=== PATIENT | female | born 1935 | race Caucasian/White ===

== ENCOUNTER 2020-12-04 21:16 | Inpatient (IN) | payer MEDICARE ==
[2020-12-04] MEDS ORDERED: Ketorolac Tromethamine 30 MG/ML VIAL ONE (23:13)
[2020-12-04 23:22] LABS: #Lymphocytes 0.5 thou/uL (1.20-3.40); #Monocytes 0.5 thou/uL (0.11-0.59); #Neutrophils 8.2 thou/uL (1.40-6.50); %Basophils 0.2 % (0.0-1.0); %Eosinophils 0.1 % (0.0-10.0); %Lymphocytes 5.4 % (21.0-51.0); %Monocytes 5.7 % (0.0-10.0); %Neutrophils 88.7 % (42.0-75.0); Hemoglobin 12.2 g/dL (12.0-16.0); Mean Corpuscular HGB CONC 33.1 g/dL (32.0-36.0); Mean Corpuscular Hemoglobin 30.8 pg (27.0-31.0); Mean Platelet Volume 6.5 fL (7.4-10.4); Platelet Count 349 thou/uL (130-400); RBC Distribution Width 11.4 % (11.5-14.5); Red Blood Cell (RBC) Count 3.95 mill/uL (4.20-5.40); White Blood Cell (WBC) Count 9.3 thou/uL (4.8-10.8)
[2020-12-04 23:44] LABS: ALT (SGPT) 7 U/L (8-55); AST (SGOT) 14 U/L (5-34); Albumin 3.7 g/dL (3.4-4.8); Alkaline Phosphatase 133 U/L (40-110); Anion Gap 13 mmol/L (10-20); BUN (Urea Nitrogen) 15 mg/dL (9.8-20.1); Bilirubin, Total 0.7 mg/dL (0.2-1.2); CK (CPK) 78 U/L (29-168); Calc. Creatinine Clearance 0 mL/min (70-130); Calcium 8.4 mg/dL (7.8-10.44); Carbon Dioxide 26 mmol/L (23-31); Chloride 101 mmol/L (98-107); Globulin 3.1 g/dL (2.4-3.5); Glucose 124 mg/dL (83-110); Potassium 4.1 mmol/L (3.5-5.1); Protein, Total 6.8 g/dL (5.8-8.1); Sodium 136 mmol/L (136-145)
[2020-12-05] MEDS ORDERED: Ondansetron PF 4 MG/2 ML Vial IVP PRN (01:22)
[2020-12-05] MEDS ORDERED: Ondansetron ODT 4 MG TAB PO PRN (01:22)
[2020-12-05] MEDS ORDERED: Calcium Carbonate 500 MG ChewTAB PO PRN (01:22)
[2020-12-05] MEDS ORDERED: Morphine 2 MG/ML VIAL ONE (02:11)
[2020-12-05] MEDS ORDERED: hydrALAZINE 20 MG/ML VIAL SLOW IVP PRN (04:24)
[2020-12-05 04:25] VITALS: BMI 17.7
[2020-12-05] MEDS: Acetaminophen 500 MG TAB PO SCH ×3 (05:45→23:09)
[2020-12-05] MEDS ORDERED: Ketorolac Tromethamine 30 MG/ML VIAL IVP SCH (07:45)
[2020-12-05] MEDS ORDERED: Pantoprazole 40 MG GRANULES PACKET PO SCH (09:00)
[2020-12-05] MEDS: Gabapentin 100 MG CAP PO SCH ×4 (10:32→20:26)
[2020-12-05] MEDS: Pramipexole Di-HCl 0.25 MG TAB PO SCH ×2 (10:33→20:27)
[2020-12-05] MEDS: Cholecalciferol 1,000 UNITS (25 MCG) TAB PO SCH (10:33)
[2020-12-05] MEDS: Carbidopa/Levodopa 25-100 mg Tablet PO SCH ×4 (10:33→20:26)
[2020-12-05] MEDS: Atorvastatin Calcium 10 MG TAB PO SCH (10:33)
[2020-12-05] MEDS: Lactinex Tablet PO SCH (10:34)
[2020-12-05] MEDS: fentaNYL 50 mcg/hour Patch TD SCH (13:04)
[2020-12-05 15:25] LABS: Bacteria/HPF 4+ HPF (None Seen); Bilirubin Negative (Negative); Blood, Urine 2+ (Negative); Clarity Turbid (Clear); Glucose, Urine (Dipstick) Normal (Negative); Ketone, Urine Negative (Negative); Leukocyte 500 Leu/uL (Negative); Nitrite Negative (Negative); Protein, Urine (Dipstick) 70 mg/dL (Neg-Trace); Specific Gravity, Urine 1.015 (1.002-1.036); Squamous Epithelial None Seen HPF (0-3); Urobilinogen Normal mg/dL (Less than 2); WBC/HPF Greater than 50 HPF (0-3); pH, Urine 6.5 (5.0-9.0)
[2020-12-05 15:33] LABS: Urine Culture Reflex Yes Yes
[2020-12-05] MEDS: Cipro 250 MG TAB PO SCH (20:25)
[2020-12-05] MEDS ORDERED: Amlodipine 5 MG TAB PO SCH (21:00)
[2020-12-06] MEDS: Ketorolac Tromethamine 10 MG TAB PO PRN (02:59)
[2020-12-06] MEDS: Cipro 250 MG TAB PO SCH ×2 (05:25→21:03)
[2020-12-06] MEDS: Acetaminophen 500 MG TAB PO SCH ×3 (05:25→21:03)
[2020-12-06] MEDS: Pramipexole Di-HCl 0.25 MG TAB PO SCH ×2 (09:40→21:02)
[2020-12-06] MEDS: Lactinex Tablet PO SCH (09:40)
[2020-12-06] MEDS: Multivit, Therapeutic 1 TAB PO SCH (09:40)
[2020-12-06] MEDS: Cholecalciferol 1,000 UNITS (25 MCG) TAB PO SCH (09:41)
[2020-12-06] MEDS: Gabapentin 100 MG CAP PO SCH ×4 (09:41→21:03)
[2020-12-06] MEDS: Carbidopa/Levodopa 25-100 mg Tablet PO SCH ×4 (09:41→21:03)
[2020-12-06] MEDS: Atorvastatin Calcium 10 MG TAB PO SCH (09:41)
[2020-12-06] MEDS: Enoxaparin Sodium 40 MG/0.4 ML SYRINGE SC SCH (09:42)
[2020-12-06] MEDS: Senokot S 8.6-50 MG TAB PO PRN (09:55)
[2020-12-06] MEDS ORDERED: Amlodipine 5 MG TAB PO SCH (11:57)
[2020-12-06] MEDS: Lidocaine 5% Patch TD SCH (12:56)
[2020-12-06] MEDS: Amlodipine 5 MG TAB PO SCH (21:02)
[2020-12-07] MEDS: Transdermal Patch Removal TOP SCH (02:55)
[2020-12-07] MEDS: Cipro 250 MG TAB PO SCH ×2 (05:50→21:11)
[2020-12-07] MEDS: Acetaminophen 500 MG TAB PO SCH ×3 (06:15→21:12)
[2020-12-07] MEDS: Pramipexole Di-HCl 0.25 MG TAB PO SCH ×2 (08:45→21:11)
[2020-12-07] MEDS: Carbidopa/Levodopa 25-100 mg Tablet PO SCH ×4 (08:45→21:11)
[2020-12-07] MEDS: Lactinex Tablet PO SCH (08:45)
[2020-12-07] MEDS: Multivit, Therapeutic 1 TAB PO SCH (08:46)
[2020-12-07] MEDS: Gabapentin 100 MG CAP PO SCH ×4 (08:46→21:12)
[2020-12-07] MEDS: Cholecalciferol 1,000 UNITS (25 MCG) TAB PO SCH (08:46)
[2020-12-07] MEDS: Atorvastatin Calcium 10 MG TAB PO SCH (08:46)
[2020-12-07] MEDS: Enoxaparin Sodium 40 MG/0.4 ML SYRINGE SC SCH (08:47)
[2020-12-07] MEDS: Lidocaine 5% Patch TD SCH (12:54)
[2020-12-07] MEDS: Senokot S 8.6-50 MG TAB PO PRN (16:50)
[2020-12-07] MEDS: Amlodipine 5 MG TAB PO SCH (21:12)
[2020-12-08] MEDS: Transdermal Patch Removal TOP SCH (01:09)
[2020-12-08] MEDS: Acetaminophen 500 MG TAB PO SCH ×2 (05:26→15:52)
[2020-12-08] MEDS: Cipro 250 MG TAB PO SCH ×2 (05:27→20:53)
[2020-12-08 06:17] LABS: #Eosinphils 0.2 thou/uL (0.0-0.7); #Lymphocytes 1.2 thou/uL (1.20-3.40); #Monocytes 0.5 thou/uL (0.11-0.59); %Basophils 0.2 % (0.0-1.0); %Eosinophils 3.9 % (0.0-10.0); %Lymphocytes 19.5 % (21.0-51.0); %Monocytes 8.7 % (0.0-10.0); %Neutrophils 67.7 % (42.0-75.0); Hemoglobin 13.6 g/dL (12.0-16.0); Mean Corpuscular HGB CONC 33.2 g/dL (32.0-36.0); Mean Corpuscular Hemoglobin 31.3 pg (27.0-31.0); Mean Corpuscular Volume 94.4 fL (78.0-98.0); Mean Platelet Volume 6.2 fL (7.4-10.4); Platelet Count 355 thou/uL (130-400); RBC Distribution Width 11.4 % (11.5-14.5); Red Blood Cell (RBC) Count 4.33 mill/uL (4.20-5.40); White Blood Cell (WBC) Count 5.9 thou/uL (4.8-10.8)
[2020-12-08 06:36] LABS: Anion Gap 13 mmol/L (10-20); BUN (Urea Nitrogen) 18 mg/dL (9.8-20.1); Calc. Creatinine Clearance 47 mL/min (70-130); Calcium 8.4 mg/dL (7.8-10.44); Carbon Dioxide 30 mmol/L (23-31); Chloride 89 mmol/L (98-107); Glucose 99 mg/dL (83-110); Potassium 3.9 mmol/L (3.5-5.1); Sodium 128 mmol/L (136-145)
[2020-12-08] MEDS: Enoxaparin Sodium 40 MG/0.4 ML SYRINGE SC SCH (09:45)
[2020-12-08] MEDS: Multivit, Therapeutic 1 TAB PO SCH (09:46)
[2020-12-08] MEDS: Atorvastatin Calcium 10 MG TAB PO SCH (09:48)
[2020-12-08] MEDS: Pramipexole Di-HCl 0.25 MG TAB PO SCH ×2 (09:48→20:52)
[2020-12-08] MEDS: Gabapentin 100 MG CAP PO SCH ×4 (09:50→20:53)
[2020-12-08] MEDS: Carbidopa/Levodopa 25-100 mg Tablet PO SCH ×4 (09:51→20:53)
[2020-12-08] MEDS: Cholecalciferol 1,000 UNITS (25 MCG) TAB PO SCH (09:52)
[2020-12-08] MEDS: Lactinex Tablet PO SCH (09:53)
[2020-12-08] MEDS: Fentanyl 100 MCG/2 ML VIAL SLOW IVP PRN (09:56)
[2020-12-08] MEDS ORDERED: Fleet Enema 133 ML BOT PR SCH (12:30)
[2020-12-08] MEDS: fentaNYL 50 mcg/hour Patch TD SCH (12:47)
[2020-12-08] MEDS: Lidocaine 5% Patch TD SCH (15:08)
[2020-12-08] MEDS: Acetaminophen 500 MG TAB PO PRN (15:09)
[2020-12-08] MEDS: Sodium Chloride 0.9% 1,000 ML IV SCH (15:49)
[2020-12-08] MEDS: Amlodipine 5 MG TAB PO SCH (20:54)
[2020-12-08] MEDS: Ketorolac Tromethamine 10 MG TAB PO PRN (21:01)
[2020-12-09] MEDS: Sodium Chloride 0.9% 1,000 ML IV SCH ×2 (04:51→10:11)
[2020-12-09 05:57] LABS: #Eosinphils 0.2 thou/uL (0.0-0.7); #Monocytes 0.6 thou/uL (0.11-0.59); #Neutrophils 5.2 thou/uL (1.40-6.50); %Basophils 0.1 % (0.0-1.0); %Eosinophils 2.8 % (0.0-10.0); %Lymphocytes 13.6 % (21.0-51.0); %Neutrophils 74.5 % (42.0-75.0); Hemoglobin 12.3 g/dL (12.0-16.0); Mean Corpuscular HGB CONC 33.9 g/dL (32.0-36.0); Mean Corpuscular Hemoglobin 31.3 pg (27.0-31.0); Mean Corpuscular Volume 92.5 fL (78.0-98.0); Mean Platelet Volume 6.2 fL (7.4-10.4); Platelet Count 343 thou/uL (130-400); RBC Distribution Width 11.5 % (11.5-14.5); Red Blood Cell (RBC) Count 3.92 mill/uL (4.20-5.40)
[2020-12-09 06:14] LABS: ALT (SGPT) Less than 7 U/L (8-55); AST (SGOT) 18 U/L (5-34); Albumin 3.2 g/dL (3.4-4.8); Alkaline Phosphatase 118 U/L (40-110); Anion Gap 13 mmol/L (10-20); BUN (Urea Nitrogen) 14 mg/dL (9.8-20.1); Bilirubin, Total 0.9 mg/dL (0.2-1.2); Calc. Creatinine Clearance 50 mL/min (70-130); Calcium 8.2 mg/dL (7.8-10.44); Carbon Dioxide 27 mmol/L (23-31); Chloride 93 mmol/L (98-107); Globulin 2.5 g/dL (2.4-3.5); Glucose 105 mg/dL (83-110); Magnesium 1.9 mg/dL (1.6-2.6); Protein, Total 5.7 g/dL (5.8-8.1); Sodium 129 mmol/L (136-145)
[2020-12-09] MEDS: Cipro 250 MG TAB PO SCH ×2 (06:35→20:22)
[2020-12-09] MEDS: Transdermal Patch Removal TOP SCH (06:35)
[2020-12-09] MEDS: Gabapentin 100 MG CAP PO SCH ×5 (09:14→20:24)
[2020-12-09] MEDS: Carbidopa/Levodopa 25-100 mg Tablet PO SCH ×4 (09:14→20:25)
[2020-12-09] MEDS: Enoxaparin Sodium 40 MG/0.4 ML SYRINGE SC SCH (09:16)
[2020-12-09] MEDS: Atorvastatin Calcium 10 MG TAB PO SCH (09:16)
[2020-12-09] MEDS: Pramipexole Di-HCl 0.25 MG TAB PO SCH ×2 (09:17→20:24)
[2020-12-09] MEDS: Multivit, Therapeutic 1 TAB PO SCH (09:18)
[2020-12-09] MEDS: Lactinex Tablet PO SCH (09:18)
[2020-12-09] MEDS: Cholecalciferol 1,000 UNITS (25 MCG) TAB PO SCH (09:19)
[2020-12-09] MEDS: Fentanyl 100 MCG/2 ML VIAL SLOW IVP PRN (09:21)
[2020-12-09] MEDS: Lidocaine 5% Patch TD SCH (12:39)
[2020-12-09] MEDS: Ketorolac Tromethamine 10 MG TAB PO PRN (15:31)
[2020-12-09 16:40] LABS: Sodium 128 mmol/L (136-145)
[2020-12-09] MEDS: Amlodipine 5 MG TAB PO SCH (20:22)
[2020-12-09] MEDS: Sodium Chloride 1 GM TAB PO SCH (20:22)
[2020-12-09] MEDS: Acetaminophen 500 MG TAB PO PRN (20:53)
[2020-12-10] MEDS: Transdermal Patch Removal TOP SCH (00:37)
[2020-12-10 05:39] LABS: #Eosinphils 0.2 thou/uL (0.0-0.7); #Monocytes 0.7 thou/uL (0.11-0.59); #Neutrophils 3.5 thou/uL (1.40-6.50); %Basophils 0.6 % (0.0-1.0); %Eosinophils 3.9 % (0.0-10.0); %Lymphocytes 17.7 % (21.0-51.0); %Monocytes 12.7 % (0.0-10.0); Hemoglobin 12.9 g/dL (12.0-16.0); Mean Corpuscular HGB CONC 32.4 g/dL (32.0-36.0); Mean Corpuscular Hemoglobin 30.2 pg (27.0-31.0); Mean Platelet Volume 6.1 fL (7.4-10.4); Platelet Count 339 thou/uL (130-400); RBC Distribution Width 11.7 % (11.5-14.5); Red Blood Cell (RBC) Count 4.27 mill/uL (4.20-5.40); White Blood Cell (WBC) Count 5.3 thou/uL (4.8-10.8)
[2020-12-10 05:58] LABS: Anion Gap 13 mmol/L (10-20); BUN (Urea Nitrogen) 9 mg/dL (9.8-20.1); Calc. Creatinine Clearance 52 mL/min (70-130); Calcium 8.4 mg/dL (7.8-10.44); Carbon Dioxide 26 mmol/L (23-31); Chloride 99 mmol/L (98-107); Glucose 94 mg/dL (83-110); Potassium 3.9 mmol/L (3.5-5.1); Sodium 134 mmol/L (136-145)
[2020-12-10] MEDS: Sodium Chloride 0.9% 1,000 ML IV SCH (06:04)
[2020-12-10] MEDS: Cipro 250 MG TAB PO SCH ×2 (06:10→20:44)
[2020-12-10] MEDS: Lactinex Tablet PO SCH (08:46)
[2020-12-10] MEDS: Enoxaparin Sodium 40 MG/0.4 ML SYRINGE SC SCH (08:46)
[2020-12-10] MEDS: Pramipexole Di-HCl 0.25 MG TAB PO SCH ×2 (08:46→20:42)
[2020-12-10] MEDS: Cholecalciferol 1,000 UNITS (25 MCG) TAB PO SCH (08:47)
[2020-12-10] MEDS: Carbidopa/Levodopa 25-100 mg Tablet PO SCH ×4 (08:47→20:45)
[2020-12-10] MEDS: Multivit, Therapeutic 1 TAB PO SCH (08:47)
[2020-12-10] MEDS: Gabapentin 100 MG CAP PO SCH ×4 (08:47→20:44)
[2020-12-10] MEDS: Sodium Chloride 1 GM TAB PO SCH ×3 (08:48→20:48)
[2020-12-10] MEDS: Atorvastatin Calcium 10 MG TAB PO SCH (08:48)
[2020-12-10] MEDS: Acetaminophen 500 MG TAB PO PRN (11:14)
[2020-12-10] MEDS: Lidocaine 5% Patch TD SCH (13:05)
[2020-12-10] MEDS: Ketorolac Tromethamine 30 MG/ML VIAL IVP SCH (17:14)
[2020-12-10] MEDS: Amlodipine 5 MG TAB PO SCH (20:45)
[2020-12-11] MEDS: Sodium Chloride 0.9% 1,000 ML IV SCH ×3 (00:16→16:48)
[2020-12-11] MEDS: Ketorolac Tromethamine 30 MG/ML VIAL IVP SCH ×2 (00:38→05:15)
[2020-12-11] MEDS: Transdermal Patch Removal TOP SCH (01:00)
[2020-12-11] MEDS: Cipro 250 MG TAB PO SCH ×2 (05:15→21:10)
[2020-12-11] MEDS: Acetaminophen 500 MG TAB PO PRN (07:04)
[2020-12-11] MEDS: Enoxaparin Sodium 30 MG/0.3 ML SYRINGE SC SCH (08:43)
[2020-12-11] MEDS: Pramipexole Di-HCl 0.25 MG TAB PO SCH ×2 (08:44→21:09)
[2020-12-11] MEDS: Lactinex Tablet PO SCH (08:44)
[2020-12-11] MEDS: Carbidopa/Levodopa 25-100 mg Tablet PO SCH ×4 (08:44→21:06)
[2020-12-11] MEDS: Multivit, Therapeutic 1 TAB PO SCH (08:44)
[2020-12-11] MEDS: Atorvastatin Calcium 10 MG TAB PO SCH (08:44)
[2020-12-11] MEDS: Gabapentin 100 MG CAP PO SCH ×3 (08:47→21:10)
[2020-12-11] MEDS: Cholecalciferol 1,000 UNITS (25 MCG) TAB PO SCH (08:47)
[2020-12-11] MEDS: Sodium Chloride 1 GM TAB PO SCH ×3 (08:48→21:09)
[2020-12-11] MEDS ORDERED: Ibuprofen 600 MG TAB PO PRN (10:21)
[2020-12-11 11:21] LABS: #Eosinphils 0.1 thou/uL (0.0-0.7); #Lymphocytes 0.6 thou/uL (1.20-3.40); #Monocytes 0.4 thou/uL (0.11-0.59); #Neutrophils 5.8 thou/uL (1.40-6.50); %Basophils 0.2 % (0.0-1.0); %Eosinophils 0.8 % (0.0-10.0); %Lymphocytes 8.3 % (21.0-51.0); %Monocytes 5.3 % (0.0-10.0); %Neutrophils 85.4 % (42.0-75.0); Hemoglobin 11.6 g/dL (12.0-16.0); Mean Corpuscular HGB CONC 34.5 g/dL (32.0-36.0); Mean Corpuscular Hemoglobin 32.2 pg (27.0-31.0); Mean Corpuscular Volume 93.2 fL (78.0-98.0); Platelet Count 358 thou/uL (130-400); RBC Distribution Width 11.6 % (11.5-14.5); Red Blood Cell (RBC) Count 3.61 mill/uL (4.20-5.40); White Blood Cell (WBC) Count 6.8 thou/uL (4.8-10.8)
[2020-12-11 11:37] LABS: Anion Gap 12 mmol/L (10-20); BUN (Urea Nitrogen) 7 mg/dL (9.8-20.1); CRP (Inflammatory) 1.03 mg/dL (= or < 0.5); Calc. Creatinine Clearance 54 mL/min (70-130); Calcium 7.9 mg/dL (7.8-10.44); Carbon Dioxide 25 mmol/L (23-31); Chloride 97 mmol/L (98-107); Glucose 140 mg/dL (83-110); Potassium 3.3 mmol/L (3.5-5.1); Sodium 131 mmol/L (136-145)
[2020-12-11] MEDS ORDERED: Magnevist 469MG/ML 20 ML VIAL ONE (12:18)
[2020-12-11] MEDS: Lidocaine 5% Patch TD SCH (13:56)
[2020-12-11] MEDS: Potassium Chloride 20 MEQ TAB PO SCH ×2 (16:23→21:09)
[2020-12-11] MEDS: Ketorolac Tromethamine 30 MG/ML VIAL IVP PRN ×2 (16:47→22:21)
[2020-12-11] MEDS: Amlodipine 5 MG TAB PO SCH (21:09)
[2020-12-11] MEDS: Melatonin 3 MG TAB PO PRN (22:20)
[2020-12-12] MEDS: Transdermal Patch Removal TOP SCH (01:01)
[2020-12-12] MEDS: Sodium Chloride 0.9% 1,000 ML IV SCH ×3 (01:03→21:06)
[2020-12-12] MEDS: Acetaminophen 500 MG TAB PO PRN ×2 (03:54→10:42)
[2020-12-12] MEDS: Cipro 250 MG TAB PO SCH ×2 (05:17→21:04)
[2020-12-12] MEDS: Ketorolac Tromethamine 30 MG/ML VIAL IVP PRN ×2 (05:17→14:17)
[2020-12-12] MEDS: Carbidopa/Levodopa 25-100 mg Tablet PO SCH ×4 (08:42→21:05)
[2020-12-12] MEDS: Atorvastatin Calcium 10 MG TAB PO SCH (08:42)
[2020-12-12] MEDS: Multivit, Therapeutic 1 TAB PO SCH (08:43)
[2020-12-12] MEDS: Cholecalciferol 1,000 UNITS (25 MCG) TAB PO SCH (08:43)
[2020-12-12] MEDS: Gabapentin 100 MG CAP PO SCH (08:44)
[2020-12-12] MEDS: Enoxaparin Sodium 30 MG/0.3 ML SYRINGE SC SCH (08:45)
[2020-12-12] MEDS: Pramipexole Di-HCl 0.25 MG TAB PO SCH ×2 (08:46→21:05)
[2020-12-12] MEDS ORDERED: Lidocaine 5% Patch TD SCH (09:19)
[2020-12-12] MEDS: Lactinex Tablet PO SCH (10:42)
[2020-12-12] MEDS: Sodium Chloride 1 GM TAB PO SCH ×4 (10:42→21:12)
[2020-12-12] MEDS ORDERED: Lidocaine 2% PF 5 ML VIAL ONE (11:57)
[2020-12-12] MEDS ORDERED: Bupivacaine 0.25% 10 ML VIAL ONE (11:57)
[2020-12-12] MEDS ORDERED: Iopamidol-M 300 61% 15 ML VIAL ONE (11:57)
[2020-12-12] MEDS: Lidocaine 5% Patch TD SCH (14:07)
[2020-12-12] MEDS: Gabapentin 300 MG CAP PO SCH (21:04)
[2020-12-12] MEDS: Amlodipine 5 MG TAB PO SCH (21:05)
[2020-12-13] MEDS: Transdermal Patch Removal TOP SCH (00:41)
[2020-12-13] MEDS: Sodium Chloride 0.9% 1,000 ML IV SCH ×2 (03:58→18:42)
[2020-12-13] MEDS: Cipro 250 MG TAB PO SCH ×2 (05:23→20:47)
[2020-12-13 06:09] LABS: #Lymphocytes 0.6 thou/uL (1.20-3.40); #Monocytes 0.5 thou/uL (0.11-0.59); #Neutrophils 6.4 thou/uL (1.40-6.50); %Eosinophils 0.4 % (0.0-10.0); %Lymphocytes 8.1 % (21.0-51.0); %Monocytes 6.6 % (0.0-10.0); %Neutrophils 84.9 % (42.0-75.0); Hemoglobin 11.8 g/dL (12.0-16.0); Mean Corpuscular HGB CONC 32.4 g/dL (32.0-36.0); Mean Corpuscular Volume 92.7 fL (78.0-98.0); Mean Platelet Volume 6.1 fL (7.4-10.4); Platelet Count 428 thou/uL (130-400); RBC Distribution Width 11.8 % (11.5-14.5); Red Blood Cell (RBC) Count 3.92 mill/uL (4.20-5.40); White Blood Cell (WBC) Count 7.6 thou/uL (4.8-10.8)
[2020-12-13 06:28] LABS: Anion Gap 14 mmol/L (10-20); BUN (Urea Nitrogen) 10 mg/dL (9.8-20.1); Calc. Creatinine Clearance 48 mL/min (70-130); Calcium 8.4 mg/dL (7.8-10.44); Carbon Dioxide 23 mmol/L (23-31); Chloride 98 mmol/L (98-107); Glucose 112 mg/dL (83-110); Potassium 3.4 mmol/L (3.5-5.1); Sodium 132 mmol/L (136-145)
[2020-12-13] MEDS: Carbidopa/Levodopa 25-100 mg Tablet PO SCH ×4 (08:59→20:48)
[2020-12-13] MEDS: Enoxaparin Sodium 30 MG/0.3 ML SYRINGE SC SCH ×2 (09:00→09:02)
[2020-12-13] MEDS: Sodium Chloride 1 GM TAB PO SCH ×5 (09:00→20:58)
[2020-12-13] MEDS: Gabapentin 300 MG CAP PO SCH ×2 (09:00→20:47)
[2020-12-13] MEDS: Cholecalciferol 1,000 UNITS (25 MCG) TAB PO SCH (09:01)
[2020-12-13] MEDS: Pramipexole Di-HCl 0.25 MG TAB PO SCH ×2 (09:02→21:02)
[2020-12-13] MEDS: Atorvastatin Calcium 10 MG TAB PO SCH (09:02)
[2020-12-13] MEDS: Multivit, Therapeutic 1 TAB PO SCH (09:02)
[2020-12-13] MEDS: Lactinex Tablet PO SCH (12:31)
[2020-12-13] MEDS: Lidocaine 5% Patch TD SCH (13:47)
[2020-12-13] MEDS: Acetaminophen 500 MG TAB PO PRN (20:45)
[2020-12-13] MEDS: Melatonin 3 MG TAB PO PRN (20:45)
[2020-12-13] MEDS: Amlodipine 5 MG TAB PO SCH (20:45)
[2020-12-14] MEDS: Transdermal Patch Removal TOP SCH (00:11)
[2020-12-14] MEDS: Sodium Chloride 0.9% 1,000 ML IV SCH ×3 (05:31→22:08)
[2020-12-14] MEDS: Cipro 250 MG TAB PO SCH ×2 (05:34→19:38)
[2020-12-14] MEDS: Pramipexole Di-HCl 0.25 MG TAB PO SCH ×2 (08:02→19:39)
[2020-12-14] MEDS: Atorvastatin Calcium 10 MG TAB PO SCH (08:03)
[2020-12-14] MEDS: Carbidopa/Levodopa 25-100 mg Tablet PO SCH ×4 (08:03→19:38)
[2020-12-14] MEDS: Gabapentin 300 MG CAP PO SCH ×2 (08:04→19:36)
[2020-12-14] MEDS: Multivit, Therapeutic 1 TAB PO SCH (08:04)
[2020-12-14] MEDS: Enoxaparin Sodium 30 MG/0.3 ML SYRINGE SC SCH (08:05)
[2020-12-14] MEDS: Cholecalciferol 1,000 UNITS (25 MCG) TAB PO SCH (08:05)
[2020-12-14 08:19] LABS: #Eosinphils 0.1 thou/uL (0.0-0.7); #Lymphocytes 0.8 thou/uL (1.20-3.40); #Monocytes 0.8 thou/uL (0.11-0.59); %Basophils 0.3 % (0.0-1.0); %Eosinophils 0.6 % (0.0-10.0); %Lymphocytes 7.7 % (21.0-51.0); %Monocytes 7.4 % (0.0-10.0); %Neutrophils 84.1 % (42.0-75.0); Hemoglobin 11.4 g/dL (12.0-16.0); Mean Corpuscular HGB CONC 34.5 g/dL (32.0-36.0); Mean Corpuscular Hemoglobin 32.1 pg (27.0-31.0); Platelet Count 389 thou/uL (130-400); RBC Distribution Width 11.9 % (11.5-14.5); Red Blood Cell (RBC) Count 3.55 mill/uL (4.20-5.40); White Blood Cell (WBC) Count 10.7 thou/uL (4.8-10.8)
[2020-12-14 08:28] LABS: Anion Gap 13 mmol/L (10-20); BUN (Urea Nitrogen) 8 mg/dL (9.8-20.1); Calc. Creatinine Clearance 55 mL/min (70-130); Calcium 8.1 mg/dL (7.8-10.44); Carbon Dioxide 23 mmol/L (23-31); Chloride 101 mmol/L (98-107); Glucose 105 mg/dL (83-110); Sodium 134 mmol/L (136-145)
[2020-12-14] MEDS: Acetaminophen 500 MG TAB PO PRN ×2 (09:37→18:47)
[2020-12-14] MEDS: Ketorolac Tromethamine 30 MG/ML VIAL IVP PRN ×2 (09:46→23:15)
[2020-12-14] MEDS: Sodium Chloride 1 GM TAB PO SCH ×3 (09:47→20:08)
[2020-12-14] MEDS: Lidocaine 5% Patch TD SCH (14:54)
[2020-12-14] MEDS: Lactinex Tablet PO SCH (17:15)
[2020-12-14] MEDS: Amlodipine 5 MG TAB PO SCH (19:41)
[2020-12-14] MEDS: Melatonin 3 MG TAB PO PRN (20:22)
[2020-12-15] MEDS: Transdermal Patch Removal TOP SCH (01:22)
[2020-12-15] MEDS: Acetaminophen 500 MG TAB PO PRN ×2 (02:08→14:56)
[2020-12-15 05:06] LABS: #Eosinphils 0.1 thou/uL (0.0-0.7); #Lymphocytes 0.9 thou/uL (1.20-3.40); #Monocytes 0.7 thou/uL (0.11-0.59); #Neutrophils 8.1 thou/uL (1.40-6.50); %Basophils 0.3 % (0.0-1.0); %Eosinophils 0.7 % (0.0-10.0); %Lymphocytes 9.4 % (21.0-51.0); %Monocytes 7.3 % (0.0-10.0); %Neutrophils 82.3 % (42.0-75.0); Hemoglobin 11.4 g/dL (12.0-16.0); Mean Corpuscular HGB CONC 32.9 g/dL (32.0-36.0); Mean Corpuscular Hemoglobin 30.3 pg (27.0-31.0); Mean Corpuscular Volume 92.2 fL (78.0-98.0); Mean Platelet Volume 6.1 fL (7.4-10.4); Platelet Count 381 thou/uL (130-400); RBC Distribution Width 12.1 % (11.5-14.5); Red Blood Cell (RBC) Count 3.77 mill/uL (4.20-5.40); White Blood Cell (WBC) Count 9.8 thou/uL (4.8-10.8)
[2020-12-15 05:23] LABS: Anion Gap 14 mmol/L (10-20); BUN (Urea Nitrogen) 6 mg/dL (9.8-20.1); Calc. Creatinine Clearance 58 mL/min (70-130); Carbon Dioxide 23 mmol/L (23-31); Chloride 95 mmol/L (98-107); Glucose 101 mg/dL (83-110); Sodium 129 mmol/L (136-145)
[2020-12-15] MEDS: Cipro 250 MG TAB PO SCH (07:36)
[2020-12-15] MEDS: Atorvastatin Calcium 10 MG TAB PO SCH (08:40)
[2020-12-15] MEDS: Pramipexole Di-HCl 0.25 MG TAB PO SCH (08:41)
[2020-12-15] MEDS: Sodium Chloride 1 GM TAB PO SCH ×2 (08:41→14:05)
[2020-12-15] MEDS: Cholecalciferol 1,000 UNITS (25 MCG) TAB PO SCH (08:41)
[2020-12-15] MEDS: Multivit, Therapeutic 1 TAB PO SCH (08:41)
[2020-12-15] MEDS: Gabapentin 300 MG CAP PO SCH (08:41)
[2020-12-15] MEDS: Carbidopa/Levodopa 25-100 mg Tablet PO SCH ×3 (08:41→14:05)
[2020-12-15] MEDS ORDERED: Floranex Packet PO SCH (09:00)
[2020-12-15] MEDS ORDERED: Potassium Chloride 20 MEQ TAB PO SCH (09:45)
[2020-12-15] MEDS: Ketorolac Tromethamine 30 MG/ML VIAL IVP PRN (10:13)
[2020-12-15] MEDS: Sodium Chloride 0.9% 1,000 ML IV SCH (11:03)
[2020-12-15] MEDS: Lidocaine 5% Patch TD SCH (12:40)
[2020-12-15 15:09] VITALS: BP 133/65; TEMP 98.3
== END 2020-12-15 15:00 | DRG 551 ==
LOC: ERS 21:16 → SJJU 12-05 01:20 → OBSVTOIN 12-05 17:17
PROVIDERS: ADMIT Student in an Organized Health Care Education/Training Program; ATTEND Internal Medicine
PROC: 3E0S33Z Introduction of Anti-inflammatory into Epidural Space, Percutaneous Approach (ICD-10-PCS; principal; 2020-12-12)
PROC: 3E0S3BZ Introduction of Anesthetic Agent into Epidural Space, Percutaneous Approach (ICD-10-PCS; 2020-12-12)
DX: M47.26 Other spondylosis with radiculopathy, lumbar region (principal); G93.41 Metabolic encephalopathy; S32.10XA Unspecified fracture of sacrum, initial encounter for closed fracture; N39.0 Urinary tract infection, site not specified; R44.3 Hallucinations, unspecified; E87.1 Hypo-osmolality and hyponatremia; M48.061 Spinal stenosis, lumbar region without neurogenic claudication; Z20.822 Contact with and (suspected) exposure to COVID-19; G20 Parkinson's disease; G62.9 Polyneuropathy, unspecified; E78.5 Hyperlipidemia, unspecified; I10 Essential (primary) hypertension; Z85.048 Personal history of other malignant neoplasm of rectum, rectosigmoid junction, and anus; K21.9 Gastro-esophageal reflux disease without esophagitis; R26.2 Difficulty in walking, not elsewhere classified; B96.21 Shiga toxin-producing Escherichia coli [E. coli] [STEC] O157 as the cause of diseases classified elsewhere; X58.XXXA Exposure to other specified factors, initial encounter; Z88.1 Allergy status to other antibiotic agents; Z88.5 Allergy status to narcotic agent; Z88.0 Allergy status to penicillin
CPT/HCPCS: 36415; 72131; 72148; 72149; 80048; 80053; 81001; 82550; 83735; 83930; 83935; 84300; 85025; 85652; 86140; 87077; 87086; 87186; 96374; 96375; 96376; A9579; G0378; J1040; J1650; J1885; J2001; J2270; J3010; Q9967; S0020